=== PATIENT | female | born 1955 | race Caucasian/White ===

== ENCOUNTER 2016-06-12 09:21 | Emergency (ER) | payer BC ==
[~2016-06-12] VITALS: Ht 157.4 cm; Wt 83.5 kg
[~2016-06-12 09:21] MED LIST: SEPTRA DS 800 M1 TAB PO; SYNTHROID0.112 MG PO; VICODIN 500 MG-1 TAB PO
[2016-06-12] MEDS ORDERED: LISINOPRIL AND1 TAB PO (09:28)
[2016-06-12] MEDS ORDERED: ESTER-C 500 MG1 EACH PO (09:28)
[2016-06-12] MEDS ORDERED: Oscal,Oyster S500 MG PO (09:29)
[2016-06-12] MEDS ORDERED: FISH OIL500 M1 PO (09:29)
[2016-06-12] MEDS ORDERED: CALCIUM 500 +1 EAC3 PO (09:30)
[2016-06-12 09:35] VITALS: BP 152/90
[2016-06-12 10:06] LABS: BASO % 0.3 % (0.0-1.0); EOS # 0.1 10*3/uL (0.0-0.4); HEMATOCRIT 43.5 % (37.0-47.0); HEMOGLOBIN 14.7 g/dl (12.0-16.0); LYMPH # 1.4 10*3/uL (1.3-4.4); MEAN CELL VOLUME 95.2 fl (81.0-99.0); MEAN CORPUSCULAR HGB 32.2 pg (27.0-31.0); MEAN CORPUSCULAR HGB CONC 33.8 g/dl (33.0-37.0); MEAN PLATELET VOLUME 10.4 fl (9.6-12.3); MONO # 0.5 10*3/uL (0.1-1.0); MONO % 8.4 % (3.0-9.0); NEUT # 3.9 10*3/uL (2.3-7.9); PLATELET COUNT AUTOMATED 208 10*3/uL (130-400); RED BLOOD COUNT 4.57 10*6/uL (4.10-5.10)
[2016-06-12 10:26] LABS: ALKALINE PHOSPHATASE 67 U/L (45-117); BILIRUBIN, TOTAL 1.3 mg/dl (0.2-1.0); BUN 16 mg/dl (7-24); CARBON DIOXIDE 28 mmol/L (21-32); CHLORIDE 102 mmol/L (98-107); EST GLOM FILT AFRICAN AMERICAN > 60 ml/min; GLUCOSE 96 mg/dL (65-99); POTASSIUM 3.6 mmol/L (3.5-5.1); SGOT/AST 17 IU/L (3-35); SGPT/ALT 21 U/L (12-78); SODIUM 141 mmol/L (136-145); TOTAL PROTEIN 7.7 gm/dL (6.4-8.2)
[2016-06-12 10:28] LABS: TROPONIN I < 0.015 ng/ml (<0.5)
[2016-06-12 10:30] VITALS: BP 129/80
[2016-06-12 11:00] VITALS: BP 138/79
[2016-06-12 12:22] LABS: BILIRUBIN 2+ (NEGATIVE); BLOOD NEGATIVE (NEGATIVE); CLARITY CLOUDY (CLEAR); COLOR YELLOW (YELLOW); GLUCOSE NEGATIVE (NEGATIVE); KETONE 2+ (NEGATIVE); LEUKO ESTERASE TRACE (NEGATIVE); NITRITE NEGATIVE (NEGATIVE); PH 5.5 (5.0-9.0); PROTEIN TRACE (NEGATIVE); SPECIFIC GRAVITY >= 1.030 (1.005-1.030)
[2016-06-12 12:52] LABS: BACTERIA 4+; CALCIUM OXALATE CRYSTALS 1+; URINE REFLEX COMMENT YES (NO)
[2016-06-12 12:54] LABS: EPITHELIAL CELLS 20-30
== END 2016-06-12 13:00 | disposition left against medical advice (07) ==
LOC: ED 09:21 → EDHOLD 12:35 → ED 12:35
PROVIDERS: Physician Assistant
DX: R07.9 Chest pain, unspecified (principal); Z79.899 Other long term (current) drug therapy

== ENCOUNTER → 2016-06-15 | Outpatient (CLI) | payer BC ==
[~2016-06-15] MED LIST changes: +CALCIUM 500 +1 EAC3 PO; +ESTER-C 500 MG1 EACH PO; +FISH OIL500 M1 PO; +LISINOPRIL AND1 TAB PO; +Oscal,Oyster S500 MG PO
== END | disposition home or self-care (01) ==
LOC: CARD 10:26
DX: R10.13 Epigastric pain (principal)

== ENCOUNTER → 2016-09-28 | Outpatient (CLI) | payer BC | END | disposition home or self-care (01) | LOC: US 13:30 | DX: D25.9 Leiomyoma of uterus, unspecified (principal) ==

== ENCOUNTER → 2021-10-26 | Outpatient (CLI) | payer OTHER ==
[2021-10-26 11:32] LABS: BASO % 0.6 % (0.0-1.0); EOS # 0.1 10*3/uL (0.0-0.4); EOS % 1.3 % (1.0-4.0); HEMATOCRIT 49.6 % (37.0-47.0); LYMPH # 1.2 10*3/uL (1.3-4.4); LYMPH % 25.2 % (27.0-41.0); MEAN CORPUSCULAR HGB 33.3 pg (27.0-31.0); MEAN CORPUSCULAR HGB CONC 33.3 g/dl (33.0-37.0); MEAN PLATELET VOLUME 10.2 fl (9.6-12.3); MONO # 0.5 10*3/uL (0.1-1.0); MONO % 10.1 % (3.0-9.0); NEUT # 2.9 10*3/uL (2.3-7.9); NEUT % 61.9 % (47.0-73.0); PLATELET COUNT AUTOMATED 164 10*3/uL (130-400); RED BLOOD COUNT 4.96 10*6/uL (4.10-5.10); RED CELL DISTRI WIDTH 12.5 % (0-14.5); WHITE BLOOD COUNT 4.6 10*3/uL (4.8-10.8)
[2021-10-26 11:59] LABS: THYROID STIM HORMONE (HS) 0.504 uIU/ml (0.358-4.75)
== END | disposition home or self-care (01) ==
LOC: LAB 10:49
PROVIDERS: ATTEND Pediatrics
DX: K14.1 Geographic tongue (principal); E03.9 Hypothyroidism, unspecified

== ENCOUNTER → 2023-11-06 | Outpatient (CLI) | payer MEDICARE, OTHER ==
[2023-11-06 09:00] LABS: HEMATOCRIT 48.4 % (37.0-47.0); MEAN CELL VOLUME 100.8 fl (81.0-99.0); MEAN CORPUSCULAR HGB CONC 33.7 g/dl (33.0-37.0); MEAN PLATELET VOLUME 9.8 fl (9.6-12.3); RED BLOOD COUNT 4.8 10*6/uL (4.10-5.10); RED CELL DISTRI WIDTH 11.9 % (0-14.5); WHITE BLOOD COUNT 4.5 10*3/uL (4.8-10.8)
[2023-11-06 09:59] LABS: ALKALINE PHOSPHATASE 69 U/L (46-116); BUN 10 mg/dl (9-23); CHLORIDE 104 mmol/L (98-107); CHOLESTEROL 224 mg/dL (<200); LDL CHOLESTEROL 117 mg/dL (9-159); POTASSIUM 4.1 mmol/L (3.4-5.1); SGPT/ALT 18 U/L (5-49); TOTAL PROTEIN 6.6 gm/dL (6.0-8.0); TRIGLYCERIDES 62 mg/dl (<150)
== END | disposition home or self-care (01) ==
LOC: LAB 08:33
PROVIDERS: ATTEND Pediatrics
DX: Z13.220 Encounter for screening for lipoid disorders (principal); M81.0 Age-related osteoporosis without current pathological fracture; E03.9 Hypothyroidism, unspecified

== ENCOUNTER → 2024-01-09 | Outpatient (CLI) | payer MEDICARE, OTHER ==
[2024-01-09 09:32] LABS: BASO % 0.6 % (0.0-1.0); EOS # 0.2 10*3/uL (0.0-0.4); EOS % 2.8 % (1.0-4.0); LYMPH # 1.6 10*3/uL (1.3-4.4); LYMPH % 29.3 % (27.0-41.0); MEAN CELL VOLUME 102.7 fl (81.0-99.0); MEAN CORPUSCULAR HGB 33.5 pg (27.0-31.0); MEAN CORPUSCULAR HGB CONC 32.7 g/dl (33.0-37.0); MEAN PLATELET VOLUME 9.4 fl (9.6-12.3); MONO # 0.6 10*3/uL (0.1-1.0); NEUT % 56.1 % (47.0-73.0); PLATELET COUNT AUTOMATED 150 10*3/uL (130-400); RED BLOOD COUNT 4.77 10*6/uL (4.10-5.10); RED CELL DISTRI WIDTH 12.5 % (0-14.5); WHITE BLOOD COUNT 5.3 10*3/uL (4.8-10.8)
== END | disposition home or self-care (01) ==
LOC: LAB 09:20
PROVIDERS: ATTEND Pediatrics
DX: D75.89 Other specified diseases of blood and blood-forming organs (principal)

== ENCOUNTER 2024-08-17 10:43 | Emergency (ER) | payer MEDICARE, OTHER ==
[~2024-08-17] VITALS: Ht 157.4 cm; Wt 79.4 kg
[2024-08-17 10:53] VITALS: BP 125/97
[2024-08-17] MEDS ORDERED: Ondansetron Hydrochloride 4 MG/2 ML VIAL IV ONE (11:15)
[2024-08-17] MEDS ORDERED: SODIUM CHLORIDE 0.9% 1,000 ML IV ONE (11:15)
[2024-08-17] MEDS ORDERED: MORPHINE Sulfate 2 MG/ML SYR IV ONE (11:20)
[2024-08-17 11:39] LABS: BASO % 0.2 % (0.0-1.0); EOS % 0.3 % (1.0-4.0); HEMATOCRIT 39.2 % (37.0-47.0); MEAN CELL VOLUME 95.1 fl (81.0-99.0); MEAN CORPUSCULAR HGB CONC 33.7 g/dl (33.0-37.0); MEAN PLATELET VOLUME 9.8 fl (9.6-12.3); MONO # 0.3 10*3/uL (0.1-1.0); NEUT % 85.6 % (47.0-73.0); PLATELET COUNT AUTOMATED 187 10*3/uL (130-400); RED BLOOD COUNT 4.12 10*6/uL (4.10-5.10); RED CELL DISTRI WIDTH 12.2 % (0-14.5); WHITE BLOOD COUNT 5.8 10*3/uL (4.8-10.8)
[2024-08-17 12:00] LABS: ALKALINE PHOSPHATASE 112 U/L (46-116); BUN 13 mg/dl (9-23); CHLORIDE 108 mmol/L (98-107); LIPASE 44 U/L (12-53); POTASSIUM 3.3 mmol/L (3.4-5.1); SGPT/ALT 9 U/L (5-49); TOTAL PROTEIN 6.4 gm/dL (6.0-8.0)
[2024-08-17] MEDS ORDERED: HYDROCODONE-AC1 EAC1 PO (12:45)
== END 2024-08-17 12:49 | disposition home or self-care (01) ==
LOC: ED 10:43
PROVIDERS: Physician Assistant Medical
DX: S20.02XA Contusion of left breast, initial encounter (principal); S20.212A Contusion of left front wall of thorax, initial encounter; R11.10 Vomiting, unspecified; T36.0X5A Adverse effect of penicillins, initial encounter; T36.1X5A Adverse effect of cephalosporins and other beta-lactam antibiotics, initial encounter; R19.7 Diarrhea, unspecified; E03.9 Hypothyroidism, unspecified; Z79.899 Other long term (current) drug therapy; V49.9XXA Car occupant (driver) (passenger) injured in unspecified traffic accident, initial encounter; Y93.89 Activity, other specified; Y92.89 Other specified places as the place of occurrence of the external cause; Y99.8 Other external cause status

== ENCOUNTER → 2024-08-20 | Outpatient (CLI) | payer MEDICARE, OTHER ==
[~2024-08-20] MED LIST changes: +HYDROCODONE-AC1 EAC1 PO
== END | disposition home or self-care (01) ==
LOC: ORTHO 08:15
PROVIDERS: ATTEND Orthopaedic Surgery
DX: S62.330A Displaced fracture of neck of second metacarpal bone, right hand, initial encounter for closed fracture (principal); X58.XXXA Exposure to other specified factors, initial encounter; Y93.89 Activity, other specified; Y92.89 Other specified places as the place of occurrence of the external cause; Y99.8 Other external cause status

== ENCOUNTER → 2024-08-25 | Day surgery (SDC) | payer MEDICARE, OTHER ==
[2024-08-21 09:30] VITALS: BP 132/71
[~2024-08-25] VITALS: Ht 160 cm; Wt 81.2 kg
[~2024-08-25] MED LIST changes: +BUPivacaine 0.5% 30 ML IV ONE; +Dexamethasone Sodium Phospha 4 MG/ML VIAL IV ONE; +Ketorolac Tromethamine 30 MG/ML VIAL IV ONE; +Lactated Ringer's Solution 1,000 ML IV ONE; +Lactated Ringer's Solution 1,000 ML IV SCH; +Lidocaine Hydrochloride 5 ML VIAL IV ONE; +Midazolam Hydrochloride 2 MG/2 ML VIAL IV ONE; +Ondansetron Hydrochloride 4 MG/2 ML VIAL IV ONE; +PROPOFOL 200 MG/20 ML VIAL IV ONE; +SEVOFLURANE 250 ML BOT INH ONE; +ceFAZolin sodium/sodium chlor 20 ML IV ONE; +ePHEDrine Sulfate 25 MG/5 ML SYRINGE IV ONE; +fentaNYL CITRATE 100 MCG/2 ML VIAL IV ONE
[2024-08-25 09:36] VITALS: BP 183/96
[2024-08-25 11:52] VITALS: BP 151/86
[2024-08-25 12:07] VITALS: BP 151/86
[2024-08-25 12:20] VITALS: BP 164/85
[2024-08-25 12:37] VITALS: BP 166/86
[2024-08-25 12:52] VITALS: BP 156/90
== END | disposition home or self-care (01) ==
LOC: SDC 08-22 09:30
PROVIDERS: ATTEND Surgery
DX: N64.89 Other specified disorders of breast (principal); N60.12 Diffuse cystic mastopathy of left breast; N64.1 Fat necrosis of breast; L92.8 Other granulomatous disorders of the skin and subcutaneous tissue; Z90.89 Acquired absence of other organs; Z87.891 Personal history of nicotine dependence; Z98.890 Other specified postprocedural states; Z79.891 Long term (current) use of opiate analgesic; Z79.890 Hormone replacement therapy; Z79.899 Other long term (current) drug therapy

== ENCOUNTER → 2024-09-10 | Outpatient (CLI) | payer MEDICARE, OTHER ==
[~2024-09-10] MED LIST changes: -BUPivacaine 0.5% 30 ML IV ONE; -Dexamethasone Sodium Phospha 4 MG/ML VIAL IV ONE; -Ketorolac Tromethamine 30 MG/ML VIAL IV ONE; -Lactated Ringer's Solution 1,000 ML IV ONE; -Lactated Ringer's Solution 1,000 ML IV SCH; -Lidocaine Hydrochloride 5 ML VIAL IV ONE; -Midazolam Hydrochloride 2 MG/2 ML VIAL IV ONE; -Ondansetron Hydrochloride 4 MG/2 ML VIAL IV ONE; -PROPOFOL 200 MG/20 ML VIAL IV ONE; -SEVOFLURANE 250 ML BOT INH ONE; -ceFAZolin sodium/sodium chlor 20 ML IV ONE; -ePHEDrine Sulfate 25 MG/5 ML SYRINGE IV ONE; -fentaNYL CITRATE 100 MCG/2 ML VIAL IV ONE
== END | disposition home or self-care (01) ==
LOC: ORTHO 03:14
PROVIDERS: ATTEND Orthopaedic Surgery
DX: S52.514A Nondisplaced fracture of right radial styloid process, initial encounter for closed fracture (principal); M79.89 Other specified soft tissue disorders; X58.XXXA Exposure to other specified factors, initial encounter; Y93.89 Activity, other specified; Y92.89 Other specified places as the place of occurrence of the external cause; Y99.8 Other external cause status

== ENCOUNTER 2024-12-29 10:02 | Inpatient (IN) | payer MEDICARE, OTHER ==
[~2024-12-29] VITALS: Ht 160 cm; Wt 80.1 kg
[2024-12-29 10:11] VITALS: BP 156/80
[2024-12-29] MEDS ORDERED: IOHEXOL 300 MG/ML 100 ML VIAL IV ONE (10:25)
[2024-12-29] MEDS ORDERED: SODIUM CHLORIDE 0.9% 1,000 ML IV ONE (10:25)
[2024-12-29 10:37] LABS: BASO # 0.0 10*3/uL (0.0-0.1); BASO % 0.5 % (0.0-1.0); EOS # 0.1 10*3/uL (0.0-0.4); EOS % 0.7 % (1.0-4.0); MEAN CELL VOLUME 97.1 fl (81.0-99.0); MEAN CORPUSCULAR HGB 32.3 pg (27.0-31.0); MEAN PLATELET VOLUME 9.9 fl (9.6-12.3); MONO # 0.9 10*3/uL (0.1-1.0); MONO % 11.2 % (3.0-9.0); NEUT # 6.1 10*3/uL (2.3-7.9); NEUT % 72.7 % (47.0-73.0); NUCLEATED RED BLOOD CELL 0.0 % (0.0-0.0); NUCLEATED RED BLOOD CELL 0.0 10*3/uL (0.0-0.0); PLATELET COUNT AUTOMATED 159 10*3/uL (130-400); RED CELL DISTRI WIDTH 12.4 % (0-14.5)
[2024-12-29 11:01] LABS: BUN 9 mg/dl (9-23); SGPT/ALT 8 U/L (5-49)
[2024-12-29] MEDS ORDERED: IOHEXOL 300 MG/ML 100 ML VIAL ONE (11:29)
[2024-12-29 11:57] LABS: BILIRUBIN Negative (Negative); BLOOD Negative (Negative); CLARITY Clear (Clear); COLOR Yellow (Yellow); KETONE 1+ (Negative); LEUKO ESTERASE Negative (Negative); NITRITE Negative (Negative); PH 6.0 (4.5-8.0); SPECIFIC GRAVITY 1.020 (1.001-1.030); UROBILINOGEN 1.0 E.U./dl (0.0-1.0)
[2024-12-29 12:10] LABS: BACTERIA 3+
[2024-12-29 14:11] VITALS: BP 124/71
[2024-12-29 15:55] VITALS: BP 172/79
[2024-12-29] MEDS ORDERED: BISACODYL 5 MG TAB PO PRN (16:10)
[2024-12-29] MEDS ORDERED: ACETAMINOPHEN 325 MG TAB PO PRN (16:10)
[2024-12-29] MEDS ORDERED: Ondansetron Hydrochloride 4 MG/2 ML VIAL IV PRN (16:10)
[2024-12-29] MEDS ORDERED: LORazepam 1 MG TAB PO SCH (18:00)
[2024-12-29] MEDS ORDERED: SODIUM CHLORIDE 0.9% 1,000 ML IV SCH (18:25)
[2024-12-29 20:00] VITALS: BP 129/76
[2024-12-29] MEDS ORDERED: Acetaminophen/Hydrocodone 5 MG/325 MG TABLET PO PRN (23:55)
[2024-12-30] VITALS: BP 137/80
[2024-12-30 06:41] LABS: BASO # 0.0 10*3/uL (0.0-0.1); BASO % 0.3 % (0.0-1.0); EOS # 0.1 10*3/uL (0.0-0.4); EOS % 2.1 % (1.0-4.0); MEAN CELL VOLUME 99.8 fl (81.0-99.0); MEAN CORPUSCULAR HGB 31.7 pg (27.0-31.0); MEAN PLATELET VOLUME 10.0 fl (9.6-12.3); MONO # 0.7 10*3/uL (0.1-1.0); MONO % 10.2 % (3.0-9.0); NEUT # 4.6 10*3/uL (2.3-7.9); NEUT % 70.0 % (47.0-73.0); NUCLEATED RED BLOOD CELL 0.0 % (0.0-0.0); NUCLEATED RED BLOOD CELL 0.0 10*3/uL (0.0-0.0); PLATELET COUNT AUTOMATED 149 10*3/uL (130-400); RED CELL DISTRI WIDTH 12.3 % (0-14.5)
[2024-12-30 07:04] LABS: ACT PARTIAL THROMBO TIME 28.7 SECONDS (20.0-32.1); BUN 7 mg/dl (9-23); FREE T4 1.37 ng/dl (0.89-1.76); LDL CHOLESTEROL 74 mg/dL (9-159)
[2024-12-30 07:22] LABS: SGPT/ALT < 7 U/L (5-49)
[2024-12-30 08:00] VITALS: BP 147/77
[2024-12-30] MEDS ORDERED: Dicyclomine Hydrochloride 20 MG TAB PO PRN (08:40)
[2024-12-30 08:48] LABS: VITAMIN D, 25-HYDROXY 44.4 ng/mL (30-100)
[2024-12-30 12:00] VITALS: BP 132/76
[2024-12-30] MEDS ORDERED: BISACODYL 5 MG TAB PO ONE (14:00)
[2024-12-30 16:00] VITALS: BP 149/83
[2024-12-30 20:00] VITALS: BP 137/72
[2024-12-30] MEDS ORDERED: LORazepam 1 MG TAB PO SCH (20:00)
[2024-12-30] MEDS ORDERED: FOAM BANDAGE 1 EACH BANDAGE T ONE (22:12)
[2024-12-30] MEDS ORDERED: FOAM BANDAGE HEEL T ONE (22:12)
[2024-12-31] VITALS: BP 146/86
[2024-12-31 07:02] LABS: BASO # 0.0 10*3/uL (0.0-0.1); BASO % 0.5 % (0.0-1.0); EOS # 0.1 10*3/uL (0.0-0.4); EOS % 2.2 % (1.0-4.0); MEAN CELL VOLUME 96.8 fl (81.0-99.0); MEAN CORPUSCULAR HGB 31.8 pg (27.0-31.0); MEAN PLATELET VOLUME 9.8 fl (9.6-12.3); MONO # 0.6 10*3/uL (0.1-1.0); MONO % 10.8 % (3.0-9.0); NEUT # 4.0 10*3/uL (2.3-7.9); NEUT % 68.9 % (47.0-73.0); NUCLEATED RED BLOOD CELL 0.0 % (0.0-0.0); NUCLEATED RED BLOOD CELL 0.0 10*3/uL (0.0-0.0); PLATELET COUNT AUTOMATED 168 10*3/uL (130-400); RED CELL DISTRI WIDTH 12.3 % (0-14.5)
[2024-12-31 08:00] VITALS: BP 149/76
[2024-12-31 08:10] LABS: BUN < 5 mg/dl (9-23); SGPT/ALT < 7 U/L (5-49)
[2024-12-31] MEDS ORDERED: BISACODYL 5 MG TAB PO SCH (10:00)
[2024-12-31] MEDS ORDERED: DOCUSATE SODIUM 100 MG CAP PO SCH (10:00)
[2024-12-31 11:53] VITALS: BP 171/66
[2024-12-31 16:00] VITALS: BP 149/81
[2024-12-31 20:00] VITALS: BP 147/83
[2024-12-31] MEDS ORDERED: LORazepam 1 MG TAB PO PRN (22:00)
[2025-01-01] VITALS: BP 141/77
[2025-01-01 06:34] LABS: BASO # 0.0 10*3/uL (0.0-0.1); BASO % 0.7 % (0.0-1.0); EOS # 0.2 10*3/uL (0.0-0.4); EOS % 4.0 % (1.0-4.0); MEAN CELL VOLUME 96.4 fl (81.0-99.0); MEAN CORPUSCULAR HGB 31.9 pg (27.0-31.0); MEAN PLATELET VOLUME 9.9 fl (9.6-12.3); MONO # 0.6 10*3/uL (0.1-1.0); MONO % 10.8 % (3.0-9.0); NEUT # 3.6 10*3/uL (2.3-7.9); NEUT % 66.9 % (47.0-73.0); NUCLEATED RED BLOOD CELL 0.0 % (0.0-0.0); NUCLEATED RED BLOOD CELL 0.0 10*3/uL (0.0-0.0); PLATELET COUNT AUTOMATED 182 10*3/uL (130-400); RED CELL DISTRI WIDTH 12.1 % (0-14.5)
[2025-01-01 07:05] LABS: BUN < 5 mg/dl (9-23); SGPT/ALT < 7 U/L (5-49)
[2025-01-01 08:00] VITALS: BP 146/77
[2025-01-01] MEDS ORDERED: BARIUM SULFATE 2% 450 ML BOT PO SCH (10:00)
[2025-01-01 12:00] VITALS: BP 141/78
[2025-01-01] MEDS ORDERED: IOHEXOL 300 MG/ML 100 ML VIAL IV ONE (12:00)
[2025-01-01 16:00] VITALS: BP 165/80
[2025-01-01 20:00] VITALS: BP 146/84
[2025-01-02] VITALS: BP 150/90
[2025-01-02 05:56] LABS: BASO # 0.0 10*3/uL (0.0-0.1); BASO % 0.5 % (0.0-1.0); EOS # 0.3 10*3/uL (0.0-0.4); EOS % 4.4 % (1.0-4.0); MEAN CELL VOLUME 97.9 fl (81.0-99.0); MEAN CORPUSCULAR HGB 31.9 pg (27.0-31.0); MEAN PLATELET VOLUME 9.7 fl (9.6-12.3); MONO # 0.8 10*3/uL (0.1-1.0); MONO % 12.6 % (3.0-9.0); NEUT # 3.8 10*3/uL (2.3-7.9); NEUT % 61.8 % (47.0-73.0); NUCLEATED RED BLOOD CELL 0.0 % (0.0-0.0); NUCLEATED RED BLOOD CELL 0.0 10*3/uL (0.0-0.0); PLATELET COUNT AUTOMATED 191 10*3/uL (130-400); RED CELL DISTRI WIDTH 11.9 % (0-14.5)
[2025-01-02 06:18] LABS: BUN < 5 mg/dl (9-23); SGPT/ALT < 7 U/L (5-49)
[2025-01-02 08:00] VITALS: BP 164/70
[2025-01-02] MEDS ORDERED: POTASSIUM CHLORIDE 20 MEQ TAB PO ONE (08:45)
[2025-01-02] MEDS ORDERED: PSYLLIUM 1 PCK PACKET PO SCH (10:00)
[2025-01-02 12:00] VITALS: BP 146/74
[2025-01-02 16:00] VITALS: BP 161/83
[2025-01-02 20:00] VITALS: BP 129/69
[2025-01-03] VITALS: BP 146/69
[2025-01-03 05:36] LABS: BUN 7 mg/dl (9-23)
[2025-01-03 05:54] VITALS: BP 160/94
[2025-01-03 06:03] LABS: BASO # 0.0 10*3/uL (0.0-0.1); BASO % 0.7 % (0.0-1.0); EOS # 0.3 10*3/uL (0.0-0.4); EOS % 4.6 % (1.0-4.0); MEAN CELL VOLUME 96.4 fl (81.0-99.0); MEAN CORPUSCULAR HGB 31.8 pg (27.0-31.0); MEAN PLATELET VOLUME 9.9 fl (9.6-12.3); MONO # 0.6 10*3/uL (0.1-1.0); MONO % 11.0 % (3.0-9.0); NEUT # 3.6 10*3/uL (2.3-7.9); NEUT % 62.2 % (47.0-73.0); NUCLEATED RED BLOOD CELL 0.0 % (0.0-0.0); NUCLEATED RED BLOOD CELL 0.0 10*3/uL (0.0-0.0); PLATELET COUNT AUTOMATED 183 10*3/uL (130-400); RED CELL DISTRI WIDTH 12.2 % (0-14.5)
[2025-01-03 08:00] VITALS: BP 151/68
[2025-01-03 12:00] VITALS: BP 100/61; BP 135/82
[2025-01-03 16:00] VITALS: BP 154/86
[2025-01-03 20:00] VITALS: BP 149/87
[2025-01-04] VITALS: BP 134/61
[2025-01-04 05:26] LABS: BUN 7 mg/dl (9-23)
[2025-01-04 05:33] LABS: SGPT/ALT < 7 U/L (5-49)
[2025-01-04 06:09] LABS: BASO # 0.1 10*3/uL (0.0-0.1); BASO % 1.1 % (0.0-1.0); EOS # 0.3 10*3/uL (0.0-0.4); EOS % 6.1 % (1.0-4.0); MEAN CELL VOLUME 96.0 fl (81.0-99.0); MEAN CORPUSCULAR HGB 31.6 pg (27.0-31.0); MEAN PLATELET VOLUME 10.0 fl (9.6-12.3); MONO # 0.5 10*3/uL (0.1-1.0); MONO % 10.6 % (3.0-9.0); NEUT # 2.6 10*3/uL (2.3-7.9); NEUT % 55.4 % (47.0-73.0); NUCLEATED RED BLOOD CELL 0.0 % (0.0-0.0); NUCLEATED RED BLOOD CELL 0.0 10*3/uL (0.0-0.0); PLATELET COUNT AUTOMATED 197 10*3/uL (130-400); RED CELL DISTRI WIDTH 12.1 % (0-14.5)
[2025-01-04 08:00] VITALS: BP 157/90
[2025-01-04 12:00] VITALS: BP 158/90
[2025-01-04] MEDS ORDERED: METRONIDAZOLE500 M1 PO (12:44)
[2025-01-04] MEDS ORDERED: CIPRO500 MG PO (12:44)
[2025-01-04] MEDS ORDERED: DOCUSATE SOD100 MG PO (12:44)
[2025-01-04] MEDS ORDERED: IBU600 M1 PO (12:46)
== END 2025-01-04 13:45 | disposition home or self-care (01) | DRG 392 ==
LOC: ED 10:02 → 4E 15:43 → EDHOLD 15:43 → 4E 17:42
PROVIDERS: Internal Medicine; ADMIT Internal Medicine; ATTEND Internal Medicine
DX: K57.32 Diverticulitis of large intestine without perforation or abscess without bleeding (principal); N30.00 Acute cystitis without hematuria; E44.1 Mild protein-calorie malnutrition; F10.10 Alcohol abuse, uncomplicated; E87.6 Hypokalemia; E80.6 Other disorders of bilirubin metabolism; D75.1 Secondary polycythemia; E89.0 Postprocedural hypothyroidism; K21.9 Gastro-esophageal reflux disease without esophagitis; Z68.31 Body mass index [BMI] 31.0-31.9, adult

== ENCOUNTER → 2025-02-03 | Outpatient (CLI) | payer MEDICARE, OTHER ==
[~2025-02-03] MED LIST changes: +CIPRO500 MG PO; +DOCUSATE SOD100 MG PO; +IBU600 M1 PO; +IOHEXOL 300 MG/ML 100 ML VIAL IV ONE; +IOHEXOL 300 MG/ML 100 ML VIAL ONE; +METRONIDAZOLE500 M1 PO
== END | disposition home or self-care (01) ==
LOC: CT 03:05
PROVIDERS: ATTEND Nurse Practitioner Family
DX: K57.30 Diverticulosis of large intestine without perforation or abscess without bleeding (principal); K57.80 Diverticulitis of intestine, part unspecified, with perforation and abscess without bleeding; R16.0 Hepatomegaly, not elsewhere classified; K44.9 Diaphragmatic hernia without obstruction or gangrene

== ENCOUNTER → 2025-03-09 | Outpatient (CLI) | payer MEDICARE, OTHER ==
[~2025-03-09] MED LIST changes: -IOHEXOL 300 MG/ML 100 ML VIAL IV ONE; -IOHEXOL 300 MG/ML 100 ML VIAL ONE
[2025-03-09 08:39] LABS: MEAN CELL VOLUME 97.9 fl (81.0-99.0); MEAN CORPUSCULAR HGB 32.3 pg (27.0-31.0); MEAN PLATELET VOLUME 10.3 fl (9.6-12.3); NUCLEATED RED BLOOD CELL 0.0 % (0.0-0.0); NUCLEATED RED BLOOD CELL 0.0 10*3/uL (0.0-0.0); PLATELET COUNT AUTOMATED 180.0 10*3/uL (130-400); RED CELL DISTRI WIDTH 13.2 % (0-14.5)
[2025-03-09 09:19] LABS: BUN 10 mg/dl (9-23); LDL CHOLESTEROL 131 mg/dL (9-159)
[2025-03-09 09:21] LABS: SGPT/ALT < 7 U/L (5-49)
== END | disposition home or self-care (01) ==
LOC: LAB 08:06
PROVIDERS: ATTEND Pediatrics
DX: I10 Essential (primary) hypertension (principal); E03.9 Hypothyroidism, unspecified; E78.5 Hyperlipidemia, unspecified; Z00.00 Encounter for general adult medical examination without abnormal findings